=== PATIENT | male | born 1985 | race Two or more races ===

== ENCOUNTER 2021-01-27 22:46 | Outpatient (REF) | payer OTHER, SELFPAY ==
[2021-01-27 23:14] LABS: COVID-19 Test Negative (Negative)
== END 2021-01-27 22:47 | disposition home or self-care (01) ==
LOC: HO.LAB 22:46
PROVIDERS: Visit Provider Internal Medicine
DX: Z20.822 Contact with and (suspected) exposure to COVID-19 (principal)
CPT/HCPCS: 36415; 87635

== ENCOUNTER 2021-06-18 23:17 | Emergency (ER) | payer OTHER, SELFPAY ==
--- NOTE | ~2021-06-18 | XR_ITS ---
EXAMINATION: XR SHOULDER, LEFT CLINICAL INFORMATION: Pain. Injury. COMPARISON: None TECHNIQUE: Three views of the left shoulder. FINDINGS: The bones and soft tissues are normal. No fracture. Glenohumeral and acromioclavicular alignment is anatomic with normal joint space. No abnormal soft tissue calcifications. XR/XR shoulder LT min 2V IMPRESSION: Normal left shoulder.
[2021-06-18 23:30] VITALS: BP 110/62; PULSE 83; RESP 18; TEMP 36.6; O2SAT 98; BMI 26.9
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
[2021-06-19] MEDS: diazePAM 2 MG TABLET PO (00:41)
[2021-06-19] MEDS: Diphth,Pertus(ACell),Tet Adult 0.5 ML SYRINGE IM (00:42)
--- NOTE | 2021-06-19 00:55 | PC.NURSE ---
Pt refused sling for shoulder.
== END 2021-06-19 01:11 | disposition home or self-care (01) ==
PROVIDERS: Emergency Provider Emergency Medicine Emergency Medical Services
DX: S16.1XXA Strain of muscle, fascia and tendon at neck level, initial encounter (principal); S49.92XA Unspecified injury of left shoulder and upper arm, initial encounter; X58.XXXA Exposure to other specified factors, initial encounter; Y93.9 Activity, unspecified; Y92.239 Unspecified place in hospital as the place of occurrence of the external cause; Y99.0 Civilian activity done for income or pay
CPT/HCPCS: 73030; 90471; 90715; 99283; 99284

== ENCOUNTER → 2021-06-21 12:52 | Outpatient (BNVA) | payer OTHER, SELFPAY | PROVIDERS: Visit Provider Internal Medicine | DX: Z13.89 Encounter for screening for other disorder (principal) | CPT/HCPCS: 99214 ==

== ENCOUNTER → 2021-06-25 10:38 | Outpatient (BNVA) | payer OTHER, SELFPAY | PROVIDERS: Visit Provider Internal Medicine | DX: Z13.89 Encounter for screening for other disorder (principal) | CPT/HCPCS: 99213 ==

== ENCOUNTER 2021-06-28 07:48 | Outpatient (REF) | payer OTHER, SELFPAY ==
--- NOTE | ~2021-06-28 | MR_ITS ---
EXAMINATION: MR SHOULDER WITHOUT CONTRAST, LEFT CLINICAL INFORMATION: Left shoulder pain, injury. COMPARISON: Radiograph dated 06/18/2021 TECHNIQUE: MR images of the shoulder were obtained on a 1.5 Madelin high-field strength scanner without intravenous contrast material. FINDINGS: ROTATOR CUFF: A full-thickness tear of the supraspinatus measures 2.1 cm AP with retraction of the torn bursal surface fibers up to 1.4 cm. The delaminated articular-sided fibers are retracted medially up to 2.4 cm between the level of the humeral head apex and the glenoid fossa. The torn margins of the tendon are frayed and irregular. A few residual intact supraspinatus fibers may be present posteriorly. The infraspinatus tendon is intact with mild tendinosis. There is mild subscapularis tendinosis with fraying of the more cephalad fibers. No rotator cuff muscle atrophy or fatty infiltration. There is increased T2 signal within the lateral portion of the deltoid muscle focally, potentially due to a muscle strain or iatrogenic, injection-related edema. BICEPS: Normal CORACOACROMIAL ARCH: The undersurface of the acromion is mildly hooked with anterolateral downsloping and prominent anterior and lateral subacromial spurs. There is moderate acromioclavicular osteoarthritis with distal clavicular cartilage loss, subarticular cystic change, and periarticular soft tissue edema. No bursitis. Subacromial space measures 6 mm. Coracohumeral distance measures 15 mm. LABRUM/CAPSULE: Labrum is diminutive posterosuperiorly with marked fraying of the remaining labral tissue. Joint capsule is unremarkable. GLENOHUMERAL JOINT/MARROW: Small marginal osteophytes of the glenoid posteriorly. There is minimal chondral thinning at the humeral head superiorly and posteriorly. No fracture or malalignment. MR/MR shoulder LT wo con IMPRESSION: 1. A full-thickness 2.1 cm (AP) insertional tear of the supraspinatus tendon with retraction of delaminated undersurface fibers up to 2.4 cm. No significant muscle atrophy. 2. Mild infraspinatus and subscapularis tendinosis. 3. Prominent subacromial spurs with a mildly hooked acromial undersurface and moderate acromioclavicular osteoarthritis, predisposing to subacromial impingement. 4. Focally abnormal signal in the deltoid muscle laterally may be due to a muscle contusion or strain. Recommend correlation for recent vaccination in the shoulder as this can also have a similar appearance. 5. Minimal glenohumeral arthrosis with fraying of the posterosuperior labrum.
== END 2021-06-28 07:49 | disposition home or self-care (01) ==
LOC: HO.MRI 07:48
PROVIDERS: Visit Provider Internal Medicine
DX: M25.512 Pain in left shoulder (principal); M75.122 Complete rotator cuff tear or rupture of left shoulder, not specified as traumatic
CPT/HCPCS: 73221; 99202

== ENCOUNTER 2021-07-13 11:32 | Day surgery (SDC) | payer OTHER, SELFPAY ==
[2021-07-06 10:12] VITALS: BMI 26.9
--- NOTE | 2021-07-09 08:44 | HO.ANESPROP2 ---
Documented by User: Fern Lozada NP 07/09/21 08:50 HPI - Anesthesia Eval Consult details Narrative: 35yo M for Left Arthroscopic Rotator Cuff Repair PMFSH Active Problems Active Problems: All Active Problems (Updated 07/06/21 @ 10:12 by Farhana Maria RN) Complete rotator cuff tear of left shoulder (Acute) Past Medical History Medical History No pertinent past medical history Surgical History Surgical History H/O foot surgery Hx of appendectomy Social History Social History (Updated 06/28/21 @ 11:52 by CRISTIANO Caro) Are you a primary daytime caregiver to a significant other at home: No Do you presently have visiting nurse or other home services: No Patient Tobacco Use Status: Never used Tobacco Use of substances other than those prescribed or required for medical reasons: No Have you been hit, kicked, punched, or otherwise hurt by someone within the past year? 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 broken Assessment and Plan Assessment Anesthesia Assessment: Chart Reviewed Documented by User: Alexandru Rinaldi MD 07/13/21 13:47 [facility] Past Medical History Medical History No pertinent past medical history Family History Family history of problems with anesthesia: No Surgical History Surgical History H/O foot surgery Hx of appendectomy History of Problems with Anesthesia: No Social History Social History (Updated 06/28/21 @ 11:52 by Bessy Ledesma Michael) Are you a primary daytime caregiver to a significant other at home: No Do you presently have visiting nurse or other home services: No Patient Tobacco Use Status: Never used Tobacco Use of substances other than those prescribed or required for medical reasons: No Have you been hit, kicked, punched, or otherwise hurt by someone within the past year? 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 broken Loose/Missing/Broken Teeth: Yes Assessment and Plan Assessment Anesthesia Assessment: Anesthesia Plan Discussed Final Anesthetic Review Family History of Problems with Anesthesia: No History of Problems with Anesthesia: No NPO: Yes ASA Class: I Final Preanesthetic Review: No Changes in Pt Med Stat, Meds/Allgs Chart Reviewed, Consent Obtained/Reviewed and Anes Risks/Benef Reviewed Patient Risk: Low Procedure Risk: Low Anesthetic Plan Anesthetic Plan: GA and Regional Block Disposition: Standard PACU
[2021-07-13 12:00] VITALS: BP 128/76; PULSE 83; RESP 15; TEMP 36.9; O2SAT 98
[2021-07-13] MEDS: Lactated Ringers 1,000 ML 100 ML IVCONT (12:15)
--- NOTE | 2021-07-13 14:06 | MHC.SHP ---
Pre-Procedural Eval Section A Date of Service: 07/13/21 The patient is an INPATIENT: No Changes since office visit: Yes Patient answered all questions; No Cold of Flu in the past 2 weeks, No New Medical Problems and No Changes in Medication The History & Physical has been completed within 30 days and I have reviewed it.: Yes Section B Chief Complaint: rotator cuff tear Allergies: Allergies Allergy/AdvReac Type Severity Reaction Status Date / Time No Known Allergies Allergy Verified 07/13/21 11:46 Plan I have reviewed the history and physical and performed a pertinent physical examination on my patient. No changes have occurred unless specified.
[2021-07-13 16:21] VITALS: BP 112/50; PULSE 85; RESP 16; TEMP 36.4; O2SAT 100
--- NOTE | 2021-07-13 16:23 | P.BOP_ITS ---
Brief Operative Note Date of Service: 07/13/21 Pre-op diagnosis: Left rotator cuff tear Post-op diagnosis: same Procedure: Left rotator cuyff repair Implants: Gardner and Keith rosenbergcomati x4 Surgeon: Shin Menjivar MD Anesthesia: GETA and regional Was an Furniture Upholsterer used for this Procedure?: No Estimated blood loss (mL): 20 IV fluids (mL): 1,000 Pathology: other Condition: stable Disposition: PACU
[2021-07-13 16:26] VITALS: BP 119/70; PULSE 79; RESP 16; O2SAT 100
[2021-07-13 16:31] VITALS: BP 127/67; PULSE 76; RESP 16; O2SAT 98
[2021-07-13 16:36] VITALS: BP 128/76; PULSE 80; RESP 18; O2SAT 98
[2021-07-13] MEDS: Ketorolac Tromethamine 30 MG/ML VIAL 15 MG IVPUSH (16:42)
[2021-07-13] MEDS: oxyCODONE HCl Immed Release 5 MG TABLET PO (16:43)
--- NOTE | 2021-07-13 16:45 | PC.NURSE ---
medicated for pain
[2021-07-13 16:51] VITALS: BP 131/71; PULSE 83; RESP 18; TEMP 36.7; O2SAT 99
--- NOTE | 2021-07-14 10:13 | W.PM.OPN ---
Operative Note Operative Note Date of Service: 07/13/21 Narrative: Date of Service: 07/13/21 Pre-op diagnosis: Left rotator cuff tear Post-op diagnosis: same Procedure: Left rotator cuyff repair Implants: Gardner and Keith helacoil x4 Surgeon: Shin Menjivar MD Anesthesia: GETA and regional Was an Unattended Ground Sensor Specialist used for this Procedure?: No Estimated blood loss (mL): 20 IV fluids (mL): 1,000 Pathology: other Condition: stable Disposition: PACU Procedure in detail: Patient was brought to the operating room and placed the the beach chair position. All bony prominences were well padded and the limb was prepped and draped in standard sterile fashion. A time out was called to identify proper site, proper procedure and proper surgeon. IV antibiotics per weight were administered. I began by making a posterolateral stab incision with a 15 blade. A blunt trochar was placed into the glenohumeral joint and I insufflated the joint with saline and a 30 degree arthroscope was placed. I established an outside- in anterior portal just distal to the biceps tendon. I then began my inspection of the glenohumeral joint. There was anterior interval synovitis. The subscapularis was intact. The biceps had a small tear at the anterior junction of the anterosuperior labrum. this was debrided and further treatment not indicated. I debrided the anterior interval synovium. Once finished the articular cartilage and labrum were inspected and normal. There was an undersurface tear of the supraspinatus. I then removed the trochar and entered the subacromial space. A direct lateral portal was then established and I performed a bursectomy. The cuff was then examined. There was a full thickness tear of the supraspinatus. This was mobile. An additional lateral portal was established. I debrided the loose bursal tissue and placed 2 medial row Helacoil anchors and then, using a scorpion, placed these through the cuff and then, using a standard cross-bridge technique, tied these down to two knotless lateral helacoil anchors. Prior to this I debrided the bare area down to bleeding bone. I had excellent compression and tension-free repair. Once I was satisfied with the repair I performed a 5mm sub-acromial decompression using a gi and standard technique. Once I was finished final images were captured and I removed all instrumentation. Portals were closed with nylon. Patient was placed in an abduction sling, extubated and brought to the recovery room in stable condition. There were no known complications.
== END 2021-07-13 17:23 | disposition home or self-care (01) ==
PROVIDERS: Visit Provider Orthopaedic Surgery
PROC: (CPT 29827; principal; 2021-07-13 13:30)
DX: S46.012A Strain of muscle(s) and tendon(s) of the rotator cuff of left shoulder, initial encounter (principal); S46.212A Strain of muscle, fascia and tendon of other parts of biceps, left arm, initial encounter; M65.812 Other synovitis and tenosynovitis, left shoulder; X58.XXXA Exposure to other specified factors, initial encounter; Y93.F9 Activity, other caregiving; Y92.532 Urgent care center as the place of occurrence of the external cause; Y99.0 Civilian activity done for income or pay
CPT/HCPCS: 29827; 29826; C1713; J0171; J0690; J1100; J1885; J2250; J2405; J2795; J3010

== ENCOUNTER 2021-07-19 07:16 | Outpatient (RCR) | payer OTHER, SELFPAY | END 2021-09-17 08:14 | disposition home or self-care (01) | LOC: HO.PT 07:16 | PROVIDERS: Visit Provider Physician Assistant | DX: Z98.890 Other specified postprocedural states (principal) ==

== ENCOUNTER 2021-11-11 16:49 | Outpatient (REF) | payer OTHER, SELFPAY ==
--- NOTE | ~2021-11-11 | XR_ITS ---
EXAMINATION: XR SHOULDER, LEFT CLINICAL INFORMATION: Left shoulder pain. COMPARISON: None TECHNIQUE: AP external rotation, Grashey and scapula Y views of the left shoulder are submitted. FINDINGS: The bones and soft tissues are normal. No fracture. There are orthopedic anchors applied to the left humeral head. Glenohumeral and acromioclavicular alignment is anatomic, with normal joint space. No abnormal soft tissue calcifications. XR/XR shoulder LT min 2V IMPRESSION: Normal left shoulder.
== END 2021-11-11 16:50 | disposition home or self-care (01) ==
LOC: HO.HOSX 16:49
PROVIDERS: Visit Provider Orthopaedic Surgery
DX: Z98.890 Other specified postprocedural states (principal); M25.512 Pain in left shoulder
CPT/HCPCS: 73030; 99212

== ENCOUNTER 2021-11-30 11:00 | Outpatient (RCR) | payer OTHER, SELFPAY ==
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
--- NOTE | 2022-01-24 12:22 | MHC.PT.DC ---
[facility] [place] Office [place] Office [place] Office [address] Gaston Leigh [address] [phone] F: [phone] F: [phone] F: [phone] F: [phone] Physical Therapy Discharge Report Diagnosis: S/P LEFT ROTATOR CUFF REPAIR 07/13/21 Date of Surgery: 07/13/21 Date of Evaluation: 08/03/21 Date of Discharge: 01/24/22 Treatments to Date: 27 Cancellations to Date: 5 No Shows to Date: 6 Discharge Status: Achieved Goals Improved Function Independent with HEP Patient Elected to Stop Discharge Summary: Pt HAS PROGRESSED NICELY IN PT THROUGH HIS POST OP COURSE- HE HAS A THOROUGH HEP , ADDRESING SH COMPLEX/ SCAPULAR STRENGTHENING/ PROPRIOCEPTION WELL CORE / LUMBOPELVIC STAB EXER. Pt NO-SHOWED FOR HIS LAST FEW SCHED PT APPTS- AT LAST ATTENDED PT APPT, Pt WAS WITHOUT OBSERVABLE GUARDING IN LEFT SH COMPLEX AND HAD WFL AROM AND STRENGTRH IN LEFT SH GIRDLE. Electronically signed by: DORIE KHAN,PT Please sign and return to therapist. Thank you for your referral.
== END 2022-01-24 12:21 | disposition home or self-care (01) ==
LOC: HO.PT 11:00
PROVIDERS: Visit Provider Physician Assistant
DX: Z98.890 Other specified postprocedural states (principal)
CPT/HCPCS: 97014; 97110; 97112; 97140; 97162; 97530

== ENCOUNTER → 2022-02-03 11:54 | Outpatient (BNVA) | payer OTHER, SELFPAY | PROVIDERS: Visit Provider Orthopaedic Surgery | DX: Z98.890 Other specified postprocedural states (principal) ==

== ENCOUNTER 2022-04-06 05:54 | Outpatient (REF) | payer OTHER, SELFPAY ==
[2022-04-06 06:21] LABS: COVID-19 Test Negative (Negative); IDNOW Serial# 16C4AD1C; IDNOW Serial# BCCEAD1C; Influenza A Negative (Negative); Influenza B2 Negative (Negative)
== END 2022-04-06 05:55 | disposition home or self-care (01) ==
LOC: HO.LAB 05:54
PROVIDERS: Visit Provider Internal Medicine
DX: Z20.822 Contact with and (suspected) exposure to COVID-19 (principal)
CPT/HCPCS: 87502; 87635

== ENCOUNTER 2024-01-16 08:30 | Emergency (ER) | payer OTHER, SELFPAY ==
--- NOTE | ~2024-01-16 | XR_ITS ---
EXAMINATION: XR CHEST CLINICAL INFORMATION: cough COMPARISON: None available. TECHNIQUE: Frontal view of the chest was obtained. FINDINGS: Cardiac, hilar, and mediastinal contours are normal. The lungs are clear bilaterally. No pneumothorax or effusion. Bony structures demonstrate surgical anchors left humeral head. No additional bony findings. Soft tissues appear normal. XR/XR chest 1V IMPRESSION: No active pulmonary disease. Electronically signed by: Spencer Dick MD 01/16/2024 12:03 PM TL
[2024-01-16 08:39] VITALS: BP 136/79; PULSE 64; RESP 18; TEMP 36.9; O2SAT 100; BMI 29.0
--- NOTE | 2024-01-16 08:40 | PC.NURSE ---
a&ox4. vss and up to date. pt presents to the ED c/o worsening sx after testing positive for covid on 01/06. pt reports upper respiratory sx that have worsened after no longer testing positive for covid. multiple negative swabs at home. pt also reports fever/chills/waking up in pool of sweat/sob/weakness/productive cough w/ bright red blood. pt also reports pulling something in his back d/t increase in coughing. worsens w/ movement. on RA w/o difficulty. no sob/wob noted. respirations even/unlabored. plan of care ongoing. call caballero placed within reach.
--- NOTE | 2024-01-16 09:00 | PC.NURSE ---
swabs obtained/sent to lab by tech. pt to xray at this time.
--- NOTE | 2024-01-16 09:27 | ED_ITS ---
HPI - General Adult General Chief complaint: Upper Respiratory Symptoms Stated complaint: Cough weakness Time Seen by Provider: 01/16/24 09:04 Source: patient Mode of arrival: ambulatory Limitations: no limitations History of Present Illness ED Provider: Gregory VELEZ narrative: Patient is a 38-year-old male presenting to the emergency department with complaint of cough, shortness of breath, fatigue, fever, back pain due to coughing and body aches. Tested positive for COVID 8 days ago, now testing negative. Reports blood-tinged sputum. Denies nausea, vomiting, diarrhea. MD complaint: fever, cough, fatigue Onset (ago): day(s) Location: chest and back Associated symptoms: cough, fever/chills, malaise, shortness of breath and weakness Related Data Previous Rx's ?Medication ?Instructions ?Recorded acetaminophen 325 mg tablet 650 mg (2 x 325 mg) PO Q6H PRN for 07/26/21 pain 30 days #240 tabs oxycodone 5 mg tablet 5 mg PO Q8H PRN pain 7 days #21 09/20/21 tabs amoxicillin 500 mg tablet 500 mg PO BID #20 tabs 11/14/22 amoxicillin 875 mg-potassium 1 tab PO BID #14 tabs 08/29/23 clavulanate 125 mg tablet azithromycin 250 mg tablet See Rx Instructions PO .COMPLEX #6 01/16/24 tabs benzonatate 100 mg capsule 100 mg PO TID PRN cough #20 caps 01/16/24 lidocaine 5 % topical patch 1 patch topical DAILY #15 ea 01/16/24 prednisone 20 mg tablet 40 mg (2 x 20 mg) PO DAILY #10 tabs 01/16/24 Allergies Allergy/AdvReac Type Severity Reaction Status Date / Time No Known Allergies Allergy Verified 01/16/24 08:43 Review of Systems Review of Systems: As per HPI Yes all other systems are reviewed and are negative Constitutional: Constitutional: Reports as per HPI PMFSH Past Medical History Medical History No pertinent past medical history Surgical History H/O foot surgery Hx of appendectomy Social History Social History Are you a primary home care administrator to a significant other at home: No Do you presently have visiting nurse or other home services: No Patient Tobacco Use Status: Never used Tobacco Advance Directives: No Advance Directives Information Provided: No Do you have a plan to hurt others: No Plan 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 Blood pressure normal. Heart rate normal. Respiratory rate normal. Temperature normal. Oxygen saturation normal. Const General: cooperative, healthy appearing and no acute distress Orientation/consciousness: oriented to person, oriented to place, oriented to time and patient oriented x3 Limitations: no limitations HENMT Head: Yes normocephalic and Yes atraumatic Ears: external ears normal General nose exam: Normal external nose present Face and sinus: Yes face symmetric Mouth: oropharynx normal and moist mucous membranes Throat: Yes uvula midline Eyes Pupils: Equal, round and reactive pupils present Neck Neck: Yes normal visual inspection and Yes supple Resp Effort & Inspection: normal respiratory effort and able to speak in complete sentences Auscultation: clear to auscultation bilaterally Cardio Rate: regular rate Rhythm: regular rhythm Heart sounds: S1 normal heart sound present and S2 normal heart sound present GI Palpation (GI): Soft to palpation and nontender Auscultation: normoactive bowel sounds General: Yes no CVA tenderness Back/Spine/Pelvis Back: no CVA tenderness Skin General skin exam: elasticity normal and turgor normal Neuro General: oriented to person, oriented to place, oriented to time, patient oriented x3, moves all extremities, no focal motor deficits and CN's II-XI intact bilaterally Cranial nerves: Yes Equal, round and reactive pupils present Cognition (Neuro): normal cognition Extrem General: Yes full ROM, Yes no pedal edema and Yes no calf tenderness Psych Mental Status: mental status grossly normal Affect: normal affect Thought process: Normal thought process present Medications Administered Discontinued Medications Generic Name Dose Route Start Last Admin Trade Name Freq PRN Reason Stop Dose Admin Ibuprofen 600 mg 01/16/24 09:58 01/16/24 10:03 Ibuprofen 600 Mg Tablet PO 01/16/24 09:59 600 mg ONCE ONE Administration Oxycodone HCl 5 mg 01/16/24 09:58 01/16/24 10:03 Oxycodone Hcl Immed Release 5 Mg Tablet PO 01/16/24 09:59 5 mg ONCE ONE Administration Medical Decision Making Medical Decision Making [facility] Narrative: Patient is a 38-year-old male presenting to the emergency department with complaint of cough, shortness of breath, fatigue, fever, back pain due to coughing and body aches. On exam patient is awake, A+Ox3, VS WNL, afebrile, normal neurological exam without focal deficits, physical exam findings as above. Given reported symptoms and physical exam findings, initial differential includes viral illness, bronchitis, pneumonia, muscle strain of back. Viral serology negative. X-ray notable for no evidence of pneumonia. My interpretation is in agreement with the radiologist's interpretation. Given ongoing nature of symptoms, will treat with antibiotics, prednisone, and cough medicine. Patient updated on results and all questions answered. Return precautions discussed. Patient verbalized understanding of and agreement with plan. Differential Diagnosis Differential Diagnoses: The differential diagnosis associated with the presentation includes as per [place] Lab Data [facility] Lab Attestation statement: I reviewed the patient's lab results. as per [place] Labs: Lab Results 01/16/24 Range/Units 09:00 Influenza Type A (PCR) NEGATIVE (Negative) Influenza Type B (PCR) NEGATIVE (Negative) RSV RNA Qual (PCR) NEGATIVE (Negative) SARS-CoV-2 RNA (RT-PCR) NEGATIVE (Negative) Independent Interpretation I performed an independent interpretation of an: Plain X-Ray Interpretation: No evidence of pneumonia on chest xray Radiology Impression Discussion of test interpretation with radiology: I have reviewed the radiologist's reading. Radiologist Impression: XR/XR chest 1V IMPRESSION: No active pulmonary disease. External Record Review External record reviewed: Inpatient record, Office record and Outpatient record Prescription Management I considered prescription management with: Antibiotic and Other Discharge Plan Discharge Clinical Impression: Bronchitis Patient Disposition: Home, Self-Care Instructions: Acute Bronchitis (ED) Additional Instructions: You were evaluated in the emergency department today for cough, fever and shortness of breath. You are being treated for bronchitis with an antibiotic, please complete the full course as prescribed. You are also being prescribed a short course of steroids to decrease inflammation. You are being prescribed cough medicine which you can take every 8 hours as needed. Please follow-up with your primary care provider this week. Return to the emergency department if you develop worsening shortness of breath, difficulty breathing, chest pain, fever not improved with Tylenol or ibuprofen, or any other concerning symptoms. Prescriptions: New prednisone 20 mg tablet 40 mg PO DAILY Qty: 10 0RF azithromycin 250 mg tablet See Rx Instructions .ROUTE .COMPLEX Qty: 6 0RF Rx Instructions: For 250 mg dose pack: take 500 mg today (day 1), then 250 mg for 4 days (days 2-5) benzonatate 100 mg capsule 100 mg PO TID PRN (Reason: cough) Qty: 20 0RF lidocaine 5 % adhesive patch,medicated 1 patch topical DAILY Qty: 15 0RF Rx Instructions: leave on most painful area for up to 12 hrs No Action acetaminophen 325 mg tablet 650 mg PO Q6H PRN (Reason: for pain) 30 Days Qty: 240 2RF oxycodone 5 mg tablet 5 mg PO Q8H PRN (Reason: pain) 7 Days Qty: 21 0RF amoxicillin 500 mg tablet 500 mg PO BID Qty: 20 0RF amoxicillin-pot clavulanate 875-125 mg tablet 1 tab PO BID Qty: 14 0RF Stand Alone Forms: Work/School Release Print Language: Gabonese
[2024-01-16 09:47] LABS: Influenza A PCR NEGATIVE (Negative); Influenza B PCR NEGATIVE (Negative); Resp Syncy Virus RNA Qual PCR NEGATIVE (Negative); SARS COV2 PCR INHOUSE NEGATIVE (Negative)
[2024-01-16] MEDS: Ibuprofen 600 MG TABLET PO (10:03)
[2024-01-16] MEDS: oxyCODONE HCl Immed Release 5 MG TABLET PO (10:03)
--- NOTE | 2024-01-16 10:13 | PC.NURSE ---
pt verbalizes increase in lower back pain d/t excessive cough. provider notified/aware. medication administered per provider order. effectiveness pending. swabs negative. pt waiting for xray results at this time. respirations remain even/unlabored. lights dimmed to promote comfort. plan of care ongoing.
[2024-01-16 10:49] VITALS: BP 126/78; PULSE 51; RESP 18; TEMP 36.7; O2SAT 98
[2024-01-16 12:23] VITALS: BP 126/78; PULSE 51; RESP 18; TEMP 36.7; O2SAT 98
== END 2024-01-16 12:23 | disposition home or self-care (01) ==
PROVIDERS: Emergency Provider Emergency Medicine
DX: J40 Bronchitis, not specified as acute or chronic (principal); R05.9 Cough, unspecified; Z03.818 Encounter for observation for suspected exposure to other biological agents ruled out
CPT/HCPCS: 0241U; 71045; 99283

== ENCOUNTER → 2024-01-16 08:59 | Outpatient (BNV) | payer OTHER, SELFPAY | PROVIDERS: Emergency Provider Emergency Medicine; Visit Provider Radiology Diagnostic Radiology | DX: R05.9 Cough, unspecified (principal) | CPT/HCPCS: 71045 ==

== ENCOUNTER 2024-07-12 18:39 | Emergency (ER) | payer OTHER, SELFPAY ==
--- NOTE | ~2024-07-12 | XR_ITS ---
CLINICAL HISTORY: Chest pain 1 view chest x-ray Comparison: 01/16/2024 Findings: No consolidation or effusion. No pneumothorax. Imaged mediastinum appears unchanged. Tendon anchors redemonstrated in the left humerus. IMPRESSION: No consolidation. This document has been electronically signed by: Abebe Blackman MD on 07/12/2024 20:03:12
--- NOTE | 2024-07-12 18:40 | ECG_ITS ---
Test Reason : PALIPTATION Blood Pressure : */* mmHG Vent. Rate : 114 BPM Atrial Rate : 114 BPM P-R Int : 150 ms QRS Dur : 90 ms QT Int : 316 ms P-R-T Axes : 76 29 62 degrees QTcB Int : 435 ms Sinus tachycardia Otherwise normal ECG No previous ECGs available Referred By: Matias Leger Electronically Signed By: LORELEI MENDEZ MD
[2024-07-12 18:45] VITALS: BP 135/78; PULSE 107; RESP 20; TEMP 37.3; O2SAT 98; BMI 28.6
--- NOTE | 2024-07-12 18:47 | ED.GENADULT ---
HPI - General Adult General Chief complaint: Chest Pain Stated complaint: cp Time Seen by Provider: 07/12/24 19:36 Source: patient and old records reviewed Mode of arrival: ambulatory Limitations: no limitations History of Present Illness ED Provider: SRI VELEZ narrative: 38 yo male with PMH of rotator cuff injury who is a regular gym visitor and works out frequently. He uses pre-workout that does have 250mg caffeine, he also took a new supplement today without caffeine prior to working out. He started to feel his HR going up and down 130s to 50s. He felt tightness in the chest as well. He has no recent URI, travel, procedures, nausea/vomiting. He has felt off the last few days as well - he notes he is under a lot of stress as well. MD complaint: palpiations, chest tightness Onset (ago): day(s) (few) Location: chest Radiation: non-radiation Severity: moderate Quality: dull Pain Consistency: intermittent Relieving factors: none Exacerbating factors: movement Associated symptoms: malaise Treatments prior to arrival: none Related Data Previous Rx's ?Medication ?Instructions ?Recorded acetaminophen 325 mg tablet 650 mg (2 x 325 mg) PO Q6H PRN for 07/26/21 pain 30 days #240 tabs oxycodone 5 mg tablet 5 mg PO Q8H PRN pain 7 days #21 09/20/21 tabs amoxicillin 500 mg tablet 500 mg PO BID #20 tabs 11/14/22 amoxicillin 875 mg-potassium 1 tab PO BID #14 tabs 08/29/23 clavulanate 125 mg tablet azithromycin 250 mg tablet See Rx Instructions PO .COMPLEX #6 01/16/24 tabs benzonatate 100 mg capsule 100 mg PO TID PRN cough #20 caps 01/16/24 lidocaine 5 % topical patch 1 patch topical DAILY #15 ea 01/16/24 prednisone 20 mg tablet 40 mg (2 x 20 mg) PO DAILY #10 tabs 01/16/24 oxycodone 5 mg tablet 5 mg PO Q6H PRN pain #20 tabs 03/26/24 Allergies Allergy/AdvReac Type Severity Reaction Status Date / Time animal dander Allergy Shortness Verified 07/12/24 18:49 of Breath Review of Systems Review of Systems: Constitutional : No Fever, No Chills, No Fatigue ENT/Mouth : No sore throat, No Rhinorrhea Eyes: No Eye Pain, No Swelling, No Redness Cardiovascular : pos Chest Pain, No SOB, No Dyspnea on Exertion, pos palpitations Respiratory : No Cough, No Sputum Gastrointestinal : No Nausea, No Vomiting, No Diarrhea, No abdominal Pain Genitourinary : No Dysuria, No Urinary Frequency, No Hematuria, Musculoskeletal : No joint pain, No Myalgias, No Joint Swelling Skin : No Skin Lesions, No rash Neuro : No Weakness, No Numbness, No Dizziness, no Headache Psych : No Anxiety/Panic, No Depression All other systems reviewed and are negative [facility] Past Medical History Attestation statement: The following information was validated with the patient. 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 Oriented X3. No acute distress. Eyes: Pupils equal, round and reactive to light. ENT: Pharynx normal. Neck: Normal inspection. Neck supple. CVS: Normal heart rate and rhythm. Pulses normal. Respiratory: No respiratory distress. Breath sounds normal. Abdomen: Soft and nontender. Skin: Skin warm and dry. Normal skin color. Normal skin turgor. Extremities: No lower extremity edema. No calf ttp Neuro: Oriented X 3. No motor deficit. No sensory deficit. CN2-12 intact Course Course Course Narrative: RME: 38 yold male presents for 3 days of left sided chest tightness and palpitasions. TOday it states it worsened after after trying an new pre-workout. Patient denies any recent long travel or recent surgery. Labs EKG ordered. Medications Administered Discontinued Medications Generic Name Dose Route Start Last Admin Trade Name Elena PRN Reason Stop Dose Admin Lactated Ringer's 1,000 mls @ 999 mls/hr 07/12/24 19:47 07/12/24 20:32 Lr IV 07/12/24 20:47 999 mls/hr .Q1H1M ONE Administration Medical Decision Making Medical Decision Making MDM Narrative: 38 yo male with PMH of rotator cuff injury here with a few days of not feeling well along with palpitations and chest tightness that he has been blaming on his pre work out and supplements at this time given his age and symptoms I am going to obtain CXR, basic labs, ddimer and trop x 2. Will keep on tele and hydrate with IVF. Differential Diagnosis Differential Diagnoses: The differential diagnosis associated with the presentation includes reaction to pre workout, lyte abnormality, dehydration, low prob ACS vs VTE Admission/Observation Consideration of admission/observation: Escalation of care including admission/observation considered trop flat x 2, no events on tele, ddimer negative Lab Data [facility] Lab Attestation statement: I reviewed the patient's lab results. 07/12/24 19:01 07/12/24 19:01 Labs: Lab Results 07/12/24 07/12/24 07/12/24 Range/Units 19:01 20:04 20:23 WBC 8.9 (4.8-10.8) X10*3/uL RBC 4.49 L (4.60-5.80) X10*6/uL Hgb 13.4 L (14.0-18.0) g/dl Hct 38.9 L (42.0-52.0) % MCV 86.6 (80.0-98.0) fL MCH 29.8 (27.0-33.0) pg MCHC 34.4 (31.0-36.0) g/dl RDW 12.5 (11.0-16.0) % Plt Count 285 (160-400) X10*3/uL MPV 9.1 L (9.4-12.4) fL Immature Gran % (Auto) 0.2 (0.0-0.4) % Neut % (Auto) 66.2 (45-73) % Lymph % (Auto) 22.7 (20-40) % [place] % (Auto) 5.5 (2-11) % Eos % (Auto) 5.1 H (0-4) % Baso % (Auto) 0.3 (0-2) % Lymph # (Auto) 2.0 (1.2-4.9) X10*3/uL [place] # (Auto) 0.5 (0.1-1.2) X10*3/uL Eos # (Auto) 0.5 H (0.0-0.4) X10*3/uL Baso # (Auto) 0.0 (0.0-0.2) X10*3/uL Abs Immat Gran (auto) 0.02 (0.00-0.03) X10*3/uL Absolute Neuts (auto) 5.9 (2.0-8.3) x10*3/uL Absolute Nucleated RBC 0.000 (0.0-0.012) X10*3/uL Nucleated RBC % (auto) 0.0 (0.0-0.2) /100WBC PT 12.1 (10.9-12.4) SEC INR 1.1 (0.9-1.1) APTT 29.1 (26.0-36.8) SEC D-Dimer High Sensitivty < 150 NG/ML Sodium 141 (135-145) mmol/L Potassium 3.6 (3.3-5.1) mmol/L Chloride 106 (96-108) mmol/L Carbon Dioxide 24 (22-29) mmol/L Anion Gap 15 (12-20) BUN 22 H (9-16) mg/dL Creatinine 1.29 (0.5-1.4) mg/dL Estim Creat Clear Calc 78.3 Estimated GFR > 60 Random Glucose 128 H (60-115) mg/dL Calcium 9.4 (8.4-10.2) mg/dL Total Bilirubin 0.6 (0.0-1.0) mg/dL AST 30 (5-37) U/L ALT 33 (0-40) U/L Alkaline Phosphatase 60 (39-117) U/L Troponin I High Sens < 2.7 < 2.7 (<3.5-35.0) ng/L B-Natriuretic Peptide < 10 (<100) pg/mL Total Protein 7.5 (6.5-8.0) g/dL Albumin 4.8 (3.5-5.0) g/dL TSH 0.90 (0.32-4.0) uIU/mL Influenza Type A (PCR) NEGATIVE (Negative) Influenza Type B (PCR) NEGATIVE (Negative) RSV RNA Qual (PCR) NEGATIVE (Negative) SARS-CoV-2 RNA (RT-PCR) NEGATIVE (Negative) Independent Interpretation I performed an independent interpretation of an: EKG and Plain X-Ray (normal ) Interpretation: Rate: 114 Rhythm: sinus tach [place]: normal Normal P waves. Normal DEN. Normal QRS complex. ST T wave : normal no RAÚL qTC: 435 prior studies: no acute ischemia The study has been interpreted contemporaneously by me. . Radiology Impression Discussion of test interpretation with radiology: I have reviewed the radiologist's reading. Discharge Plan Discharge Clinical Impression: Atypical chest pain, Heart palpitations Patient Disposition: Home, Self-Care Instructions: Chest Pain (ED), Heart Palpitations (ED) Additional Instructions: heart enzymes normal x 2, ddimer negative chest xray normal lytes normal thyroid normal you need an outpatient holter monitor return for any worsening symptoms or concerns rest and stay hydrated avoid supplements Prescriptions: No Action acetaminophen 325 mg tablet 650 mg PO Q6H PRN (Reason: for pain) 30 Days Qty: 240 2RF oxycodone 5 mg tablet 5 mg PO Q8H PRN (Reason: pain) 7 Days Qty: 21 0RF amoxicillin 500 mg tablet 500 mg PO BID Qty: 20 0RF amoxicillin-pot clavulanate 875-125 mg tablet 1 tab PO BID Qty: 14 0RF prednisone 20 mg tablet 40 mg PO DAILY Qty: 10 0RF azithromycin 250 mg tablet See Rx Instructions .ROUTE .COMPLEX Qty: 6 0RF Rx Instructions: For 250 mg dose pack: take 500 mg today (day 1), then 250 mg for 4 days (days 2-5) benzonatate 100 mg capsule 100 mg PO TID PRN (Reason: cough) Qty: 20 0RF lidocaine 5 % adhesive patch,medicated 1 patch topical DAILY Qty: 15 0RF Rx Instructions: leave on most painful area for up to 12 hrs oxycodone 5 mg tablet 5 mg PO Q6H PRN (Reason: pain) Qty: 20 0RF Rx Instructions: Partial Fill upon patient request. Stand Alone Forms: Work/School Release Interventions: ED Discharge Assessment Last Done: 07/12/24 21:02 Discharge Date/Time: 07/12/24 21:03 Print Language: Faroese
[2024-07-12 19:21] LABS: INTERNATIONAL NORM RATIO 1.1 (0.9-1.1); Prothrombin Time 12.1 SEC (10.9-12.4)
[2024-07-12 19:24] LABS: Partial Thromboplastin Time 29.1 SEC (26.0-36.8)
[2024-07-12 19:25] LABS: Alanine Aminotransferase 33 U/L (0-40); Albumin Level 4.8 g/dL (3.5-5.0); Alkaline Phosphatase 60 U/L (39-117); Anion Gap 15 (12-20); Aspartate Amino Transferase 30 U/L (5-37); Bilirubin Total 0.6 mg/dL (0.0-1.0); Blood Urea Nitrogen 22 mg/dL (9-16); Calcium 9.4 mg/dL (8.4-10.2); Carbon Dioxide 24 mmol/L (22-29); Chloride 106 mmol/L (96-108); Creatinine Clr Calc Pharmacy 78.3; Estimated Glomerular Filt Rate > 60; Glucose Random 128 mg/dL (60-115); Potassium 3.6 mmol/L (3.3-5.1); Sodium 141 mmol/L (135-145); Total Protein 7.5 g/dL (6.5-8.0)
[2024-07-12 19:31] LABS: Basophils Percent Auto 0.3 % (0-2); Eosinophils Absolute Auto 0.5 X10*3/uL (0.0-0.4); Eosinophils Percent Auto 5.1 % (0-4); Hematocrit 38.9 % (42.0-52.0); Hemoglobin 13.4 g/dl (14.0-18.0); Imm Gran Abs Auto 0.02 X10*3/uL (0.00-0.03); Imm Gran Pct Auto 0.2 % (0.0-0.4); Lymphocytes Percent Auto 22.7 % (20-40); MANUAL DIFF FLAG NO; Mean Corpuscular HGB Conc 34.4 g/dl (31.0-36.0); Mean Corpuscular Hemoglobin 29.8 pg (27.0-33.0); Mean Corpuscular Volume 86.6 fL (80.0-98.0); Mean Platelet Volume 9.1 fL (9.4-12.4); Monocytes Absolute Auto 0.5 X10*3/uL (0.1-1.2); Monocytes Percent Auto 5.5 % (2-11); Neutrophils Absolute Auto 5.9 x10*3/uL (2.0-8.3); Neutrophils Percent Auto 66.2 % (45-73); Platelet Count 285 X10*3/uL (160-400); Red Blood Count 4.49 X10*6/uL (4.60-5.80); Red Cell Distribution Width 12.5 % (11.0-16.0); White Blood Count 8.9 X10*3/uL (4.8-10.8)
[2024-07-12 19:33] LABS: Troponin-I High Sensitivity < 2.7 ng/L (<3.5-35.0)
[2024-07-12 19:55] LABS: B Type Natriuretic Peptide < 10 pg/mL (<100)
[2024-07-12 20:17] LABS: D Dimer High Sensitivity < 150 NG/ML
[2024-07-12 20:27] VITALS: BP 103/65; PULSE 83; RESP 17; TEMP 36.9; O2SAT 96
[2024-07-12 20:29] LABS: Troponin-I High Sensitivity < 2.7 ng/L (<3.5-35.0)
[2024-07-12] MEDS: Lactated Ringers 1,000 ML 999 ML IV (20:32)
[2024-07-12 21:02] VITALS: BP 103/65; PULSE 83; RESP 17; TEMP 36.9; O2SAT 96
[2024-07-12 21:09] LABS: Influenza A PCR NEGATIVE (Negative); Influenza B PCR NEGATIVE (Negative); Resp Syncy Virus RNA Qual PCR NEGATIVE (Negative); SARS COV2 PCR INHOUSE NEGATIVE (Negative)
== END 2024-07-12 21:03 | disposition home or self-care (01) ==
PROVIDERS: Physician Assistant; Emergency Provider Emergency Medicine
DX: R00.2 Palpitations (principal); R07.89 Other chest pain; Z03.818 Encounter for observation for suspected exposure to other biological agents ruled out
CPT/HCPCS: 0241U; 36415; 71045; 80053; 83880; 84443; 84484; 85025; 85379; 85610; 85730; 93005; 96360; 99284; 99285; J7120

== ENCOUNTER → 2024-07-12 18:40 | Outpatient (BNV) | payer OTHER, SELFPAY | PROVIDERS: Emergency Provider Emergency Medicine; Visit Provider Internal Medicine Cardiovascular Disease | DX: R00.0 Tachycardia, unspecified (principal) | CPT/HCPCS: 93010 ==

== ENCOUNTER → 2024-07-12 18:45 | Outpatient (BNV) | payer OTHER, SELFPAY | PROVIDERS: Emergency Provider Emergency Medicine; Visit Provider Radiology Neuroradiology | DX: R07.9 Chest pain, unspecified (principal) | CPT/HCPCS: 71045 ==